=== PATIENT | female | born 1960 | race African-American/Black ===

== ENCOUNTER 2020-12-18 16:11 | Emergency (ER) | payer OTHER, SELFPAY ==
[2020-12-18 16:25] VITALS: BP 169/103; PULSE 86; RESP 16; TEMP 36.3; O2SAT 100
--- NOTE | 2020-12-18 17:12 | ED.EAR ---
HPI - Ear Problem General Chief complaint: Ear Stated complaint: Ear Pain History of Present Illness HPI Narrative: The patient, who is a smoker/occasional drinker, presents with a couple day history of clicking in her left ear. This was preceded by sinus headache,; she had left upper molar pulled on the same side previouslya week ago. No fever, cough, ringing tinnitus, vertigo, FMH Meniere's ; no loss of taste/smell, CP, vomiting/diarrhea, S OB. Triage is remarkable for elevated blood pressure, for which she has been told she has had in the past. Related Data Allergies Allergy/AdvReac Type Severity Reaction Status Date / Time No Known Allergies Allergy Verified 12/18/20 16:33 Review of Systems Review of Systems: The patient has been informed that they may have pre-hypertension or Hypertension based on a BP reading in the department. I recommend that the patient call the primary care provider listed on their discharge instructions or a physician of their choice this week to arrange follow up for further evaluation of possible pre-hypertension or Hypertension General/Constitutional: No weight loss,fever Eyes: N0: Redness,discharge Ears/Nose/Throat: No: Epistaxis,ear discharge Respiratory: Denies: Hemoptysis Gastrointestinal: No Vomiting, Bleeding-rectal Skin: No Lumps, eruption Neurologic: No Focal Weakness,Sz Hematologic: Denies: Petechiae/Purpura Psychiatric: No: Suicida ideationl All Other Systems: Reviewed and Negative PMFSH Comments At time of signature, agree with nursing past medical, surgical, social and family history. There is no relevant family history pertinent to the presenting complaint Exam Narrative: General Appearance: Well appearing, No distress EYE: PERRLA, Conjunctiva clear, EOMI,no nystagmus Ears: External ear normal Nose: Normal nose Mouth/Throat: Normal appearing, Normal lips Neck: Supple Respiratory: Airway patent, No respiratory distress Cardiovascular: RRR Abdomen: Soft, Non-tender, No massess, Musculoskeletal: Full ROM Skin: Warm, Dry Neurological: A&O x3, CN II-X intact Psychiatric: Normal mood, Normal affect Course Vital Signs Vital signs: Vital Signs Temperature 97.4 F L 12/18/20 16:25 Pulse Rate 86 12/18/20 16:25 Respiratory Rate 16 12/18/20 16:25 Blood Pressure 169/103 H 12/18/20 16:25 Pulse Oximetry 100 12/18/20 16:25 Temperature 97.4 F L 12/18/20 16:25 Pulse Rate 86 12/18/20 16:25 Respiratory Rate 16 12/18/20 16:25 Blood Pressure 169/103 H 12/18/20 16:25 Pulse Oximetry 100 12/18/20 16:25 Medical Decision Making Vital Signs Vital Signs: Vital Signs Temperature 97.4 F L 12/18/20 16:25 Pulse Rate 86 12/18/20 16:25 Respiratory Rate 16 12/18/20 16:25 Blood Pressure 169/103 H 12/18/20 16:25 Pulse Oximetry 100 12/18/20 16:25 Temperature 97.4 F L 12/18/20 16:25 Pulse Rate 86 12/18/20 16:25 Respiratory Rate 16 12/18/20 16:25 Blood Pressure 169/103 H 12/18/20 16:25 Pulse Oximetry 100 12/18/20 16:25 Discharge Plan Discharge Clinical Impression: Elevated BP without diagnosis of hypertension, Sinus headache Patient Disposition: Home, Self-Care Condition: Stable Instructions: Tinnitus (ED) Prescriptions: New azelastine 137 mcg (0.1 %) aerosol,spray 137 mcg NASAL Q12H Qty: 30 RF: 0 amlodipine [Norvasc] 5 mg tablet 5 mg PO DAILY Qty: 20 RF: 1 cefuroxime axetil 500 mg tablet 500 mg PO Q12H Qty: 14 RF: 0 fluticasone propionate [Flonase Allergy Relief] 50 mcg/actuation spray,suspension 1 spray intranasal DAILY PRN (Reason: nasal congestion) Qty: 16 RF: 0 Follow-up/Referrals: [facility] [Primary Care Provider] -
== END 2020-12-18 16:58 | disposition home or self-care (01) ==
PROVIDERS: Emergency Provider Emergency Medicine
DX: R51.9 Headache, unspecified (principal); R03.0 Elevated blood-pressure reading, without diagnosis of hypertension; F17.200 Nicotine dependence, unspecified, uncomplicated
CPT/HCPCS: 99203; G0463